=== PATIENT | female | born 2005 | race Caucasian/White ===

== ENCOUNTER 2024-09-13 14:56 | Emergency (ER) | payer MEDICAID ==
[~2024-09-13] VITALS: Ht 162.6 cm; Wt 75.9 kg
[2024-09-13 15:02] VITALS: BP 122/84; PULSE 71; O2SAT 98
[2024-09-13] MEDS ORDERED: DIF150T PO (15:35)
[2024-09-13 15:50] LABS: BILIRUBIN,URINE NEGATIVE (Neg); CLARITY,URINE SLIGHTLY CLOUDY (Clear); COLOR,URINE YELLOW (Yellow); GLUCOSE, URINE NEGATIVE (Neg); KETONES,URINE NEGATIVE (Neg); LEUKOCYTE ESTERASE ,URINE NEGATIVE (Neg); NITRITES, URINE NEGATIVE (Neg); OCCULT BLOOD,URINE LARGE (Neg); PROTEIN,URINE NEGATIVE (Neg); UROBILINOGEN,URINE 0.2 E.U/dL (0.2-1.0)
[2024-09-13 15:51] LABS: UA COLLECTION TYPE CLN CATCH MIDSTREAM; URINE HCG NEGATIVE (NEG)
[2024-09-13 15:59] LABS: BACTERIA,URINE FEW /HPF (Neg); MUCUS STRANDS NONE SEEN /LPF (Neg); RBC,URINE 20-50 /HPF (0-2); SQUAMOUS EPITHELIAL CELL,UR FEW /LPF (FEW); WBC,URINE 0-4 /HPF (0-4)
[2024-09-13 16:13] VITALS: RESP 16; TEMP 98.8
== END 2024-09-13 16:15 | disposition home or self-care (01) ==
LOC: ER 14:56
DX: B37.31 Acute candidiasis of vulva and vagina (principal); Z87.442 Personal history of urinary calculi
CPT/HCPCS: 81001; 81025; 99283